=== PATIENT | female | born 1980 | race Asian ===

== ENCOUNTER 2022-01-28 21:42 | Emergency (ER) | payer OTHER ==
[~2022-01-28] VITALS: Ht 172.7 cm; Wt 65.8 kg
[2022-01-29 00:14] VITALS: BP 148/90; TEMP 98.2
== END 2022-01-29 02:26 | disposition home or self-care (01) ==
LOC: ED 21:42
DX: A63.8 Other specified predominantly sexually transmitted diseases (principal)
CPT/HCPCS: 99282

== ENCOUNTER 2022-06-18 08:16 | Emergency (ER) | payer OTHER ==
[~2022-06-18] VITALS: Ht 172.7 cm; Wt 72.6 kg
[2022-06-18 08:24] VITALS: BP 148/62; TEMP 99
== END 2022-06-18 10:08 | disposition home or self-care (01) ==
LOC: ED 08:16
DX: S40.011A Contusion of right shoulder, initial encounter (principal); V89.2XXA Person injured in unspecified motor-vehicle accident, traffic, initial encounter; Y92.89 Other specified places as the place of occurrence of the external cause
CPT/HCPCS: 81025; 96372; 99283; J1885